=== PATIENT | female | born 1925 | race Caucasian/White ===

== ENCOUNTER 2016-07-01 16:43 | Inpatient (IN) | payer MEDICARE, BC ==
[2016-07-01] MEDS ORDERED: SODIUM CHLORIDE 0.9% 1,000 ML IV STA (17:04)
--- NOTE | 2016-07-01 17:09 | ED ---
General Adult HPI - General Chief complaint: Weakness Stated complaint: Weakness Time Seen by Provider: 07/01/16 16:52 Source: patient, family, RN notes reviewed Mode of arrival: EMS Limitations: no limitations - History of Present Illness Initial comments: Patient is a pleasant 89-year-old female presenting to the emergency department with weakness. Patient was seen by her visiting physician Tuesday with concerns for stroke. Patient has had episodes of confusion and difficulty finding words. Patient is also having episodes of slurred speech. Symptoms are intermittent. Patient feels generally weak. No isolated area of weakness. Decreased oral intake - Related Data Home Medications Medication Instructions Recorded Confirmed ALPRAZolam [Xanax] 0.5 mg PO QID PRN 07/01/16 07/01/16 Allopurinol [Zyloprim] 100 mg PO DAILY 07/01/16 07/01/16 Aspirin EC [Ecotrin Low Dose] 81 mg PO DAILY 07/01/16 07/01/16 Ciprofloxacin HCl [Cipro] 250 mg PO BID 07/01/16 07/01/16 Hydrocodone/Acetaminophen [[place] 1 tab PO Q6H PRN 07/01/16 07/01/16 10-325] Isosorbide Mononitrate ER [Imdur] 30 mg PO DAILY 07/01/16 07/01/16 Levothyroxine Sodium [Synthroid] 25 mcg PO AC-BRKFST 07/01/16 07/01/16 Losartan [Cozaar] 25 mg PO DAILY 07/01/16 07/01/16 Nystatin 100,000Unit/gm Cream 1 applic TOPICAL BID PRN 07/01/16 07/01/16 [Mycostatin Cream] Polyethylene Glycol 3350 [Miralax] 17 gm PO DAILY PRN 07/01/16 07/01/16 Spironolactone [Aldactone] 25 mg PO DAILY 07/01/16 07/01/16 Allergies Allergy/AdvReac Type Severity Reaction Status Date / Time No Known Allergies Allergy Verified 07/01/16 18:07 Review of Systems ROS Statement: Those systems with pertinent positive or pertinent negative responses have been documented in the HPI. ROS Other: All systems not noted in ROS Statement are negative. Constitutional: Denies: fever Eyes: Denies: eye pain ENT: Denies: ear pain Respiratory: Denies: cough Cardiovascular: Denies: chest pain Endocrine: Denies: fatigue Gastrointestinal: Denies: abdominal pain Genitourinary: Denies: urgency Skin: Denies: rash Neurological: Reports: weakness, confusion Past Medical History Past Medical History: Heart Failure, Hypertension, Thyroid Disorder History of Any Multi-Drug Resistant Organisms: None Reported Past Surgical History: Appendectomy, Cholecystectomy, Hysterectomy, Orthopedic Surgery Additional Past Surgical History / Comment(s): Kidney stones, Cataracks removed , tear duct sx, Past Psychological History: Depression Smoking Status: Never smoker Past Alcohol Use History: None Reported Past Drug Use History: None Reported General Exam Limitations: no limitations General appearance: alert, in no apparent distress Head exam: Present: atraumatic Eye exam: Present: normal appearance, PERRL, EOMI. Absent: nystagmus ENT exam: Present: normal oropharynx Neck exam: Present: normal inspection Respiratory exam: Present: normal lung sounds bilaterally Cardiovascular Exam: Present: regular rate, normal rhythm GI/Abdominal exam: Present: soft. Absent: tenderness Extremities exam: Present: normal inspection Back exam: Present: normal inspection Neurological exam: Present: alert, CN II-XII intact. Absent: motor sensory deficit Expanded Speech: Present: fluid speech Cranial nerves: EOM's Intact: Normal Motor strength exam: RUE: 5, LUE: 5, RLE: 5, LLE: 5 Psychiatric exam: Present: normal affect, normal mood Skin exam: Present: normal color Course Vital Signs 07/01/16 07/01/16 16:48 18:24 Temperature 97.5 F L Pulse Rate 60 50 L Respiratory 18 18 Rate Blood Pressure 179/74 179/74 O2 Sat by Pulse 93 L 96 Oximetry EKG Findings - EKG Comments: EKG Findings:: EKG shows sinus rhythm at 68. For screening AV block with a MO of 358. QRS 78. QT 442. QTC 469. Left axis. Normal QRS. Normal ST-T. Medical Decision Making - Medical Decision Making Patient reevaluated and unchanged. Patient and family updated on results and plan. Case was discussed in detail with Dr. medrano, who will admit for Dr. Sandoval. - Lab Data Result diagrams: 07/01/16 17:10 07/01/16 17:10 Lab Results 07/01/16 07/01/16 07/01/16 Range/Units 17:10 17:10 17:10 WBC 7.5 (3.8-10.6) k/uL RBC 4.66 (3.80-5.40) m/uL Hgb 15.0 (11.4-16.0) gm/dL Hct 46.1 H (34.0-46.0) % MCV 99.0 (80.0-100.0) fL MCH 32.2 (25.0-35.0) pg MCHC 32.5 (31.0-37.0) g/dL RDW 14.8 (11.5-15.5) % Plt Count 215 (150-450) k/uL Neutrophils % 65 % Lymphocytes % 27 % Monocytes % 5 % Eosinophils % 1 % Basophils % 1 % Neutrophils # 4.8 (1.3-7.7) k/uL Lymphocytes # 2.0 (1.0-4.8) k/uL Monocytes # 0.4 (0-1.0) k/uL Eosinophils # 0.1 (0-0.7) k/uL Basophils # 0.1 (0-0.2) k/uL Macrocytosis Slight PT (9.0-12.0) sec INR (<1.1) APTT (22.0-30.0) sec Sodium 142 (137-145) mmol/L Potassium 4.8 (3.5-5.1) mmol/L Chloride 111 H (98-107) mmol/L Carbon Dioxide 22 (22-30) mmol/L Anion Gap 9 mmol/L BUN 19 H (7-17) mg/dL Creatinine 1.11 H (0.52-1.04) mg/dL Est GFR (MDRD) Af Amer 56 (>60 ml/min/1.73 sqM) Est GFR (MDRD) Non-Af 46 (>60 ml/min/1.73 sqM) Glucose 92 (74-99) mg/dL Calcium 9.9 (8.4-10.2) mg/dL Phosphorus 3.4 (2.5-4.5) mg/dL Magnesium 1.9 (1.6-2.3) mg/dL Total Bilirubin 1.7 H (0.2-1.3) mg/dL AST 58 H (14-36) U/L ALT 17 (9-52) U/L Alkaline Phosphatase 78 (38-126) U/L Total Creatine Kinase 62 (30-135) U/L CK-MB (CK-2) 1.5 (0.0-2.4) ng/mL CK-MB (CK-2) Rel Index 2.4 Troponin I 0.082 H* (0.000-0.034) ng/mL Total Protein 6.8 (6.3-8.2) g/dL Albumin 3.7 (3.5-5.0) g/dL TSH 1.900 (0.465-4.680) mIU/L Free T4 1.79 (0.78-2.19) ng/dL Free T3 pg/mL 3.6 (2.8-5.3) pg/ml 07/01/16 Range/Units 17:10 WBC (3.8-10.6) k/uL RBC (3.80-5.40) m/uL Hgb (11.4-16.0) gm/dL Hct (34.0-46.0) % MCV (80.0-100.0) fL MCH (25.0-35.0) pg MCHC (31.0-37.0) g/dL RDW (11.5-15.5) % Plt Count (150-450) k/uL Neutrophils % % Lymphocytes % % Monocytes % % Eosinophils % % Basophils % % Neutrophils # (1.3-7.7) k/uL Lymphocytes # (1.0-4.8) k/uL Monocytes # (0-1.0) k/uL Eosinophils # (0-0.7) k/uL Basophils # (0-0.2) k/uL Macrocytosis PT 10.5 (9.0-12.0) sec INR 1.0 (<1.1) APTT 20.8 L (22.0-30.0) sec Sodium (137-145) mmol/L Potassium (3.5-5.1) mmol/L Chloride (98-107) mmol/L Carbon Dioxide (22-30) mmol/L Anion Gap mmol/L BUN (7-17) mg/dL Creatinine (0.52-1.04) mg/dL Est GFR (MDRD) Af Amer (>60 ml/min/1.73 sqM) Est GFR (MDRD) Non-Af (>60 ml/min/1.73 sqM) Glucose (74-99) mg/dL Calcium (8.4-10.2) mg/dL Phosphorus (2.5-4.5) mg/dL Magnesium (1.6-2.3) mg/dL Total Bilirubin (0.2-1.3) mg/dL AST (14-36) U/L ALT (9-52) U/L Alkaline Phosphatase (38-126) U/L Total Creatine Kinase (30-135) U/L CK-MB (CK-2) (0.0-2.4) ng/mL CK-MB (CK-2) Rel Index Troponin I (0.000-0.034) ng/mL Total Protein (6.3-8.2) g/dL Albumin (3.5-5.0) g/dL TSH (0.465-4.680) mIU/L Free T4 (0.78-2.19) ng/dL Free T3 pg/mL (2.8-5.3) pg/ml - Radiology Data Radiology results: report reviewed (Computed tomography scan the brain shows some atrophy and chronic small vessel disease. No acute process.), image reviewed (This x-ray shows cardiomegaly with some venous congestion.) Disposition Clinical Impression: TIA (transient ischemic attack) Disposition: ADMITTED IP TO THIS [facility] Time of Disposition: 18:53
[2016-07-01 17:30] LABS: Basophils # (A) 0.1 k/uL (0-0.2); Basophils % (A) 1 %; CH 32.8; CHCM 33.3; Eosinophils # (A) 0.1 k/uL (0-0.7); Eosinophils % (A) 1 %; HCT 46.1 % (34.0-46.0); HDW 2.88; Luc # (Auto) 0.12; Luc % (Auto) 2; Lymphocytes % (A) 27 %; MCH 32.2 pg (25.0-35.0); MCHC 32.5 g/dL (31.0-37.0); Macrocytosis Slight; Mean Platelet Volume 7.6; Monocytes # (A) 0.4 k/uL (0-1.0); Monocytes % (A) 5 %; Neutrophils # (A) 4.8 k/uL (1.3-7.7); Neutrophils % (A) 65 %; RBC 4.66 m/uL (3.80-5.40); RDW 14.8 % (11.5-15.5); WBC 7.5 k/uL (3.8-10.6); WBC (Perox) 7.07
[2016-07-01 17:43] LABS: Calcium 9.9 mg/dL (8.4-10.2); Magnesium 1.9 mg/dL (1.6-2.3); Phosphorous 3.4 mg/dL (2.5-4.5); Potassium 4.8 mmol/L (3.5-5.1); Total Bilirubin 1.7 mg/dL (0.2-1.3); Total Protein 6.8 g/dL (6.3-8.2)
[2016-07-01] MEDS ORDERED: HYDROcodone/APAP 10-325MG 1 EACH TAB PO STA (17:51)
[2016-07-01 18:01] LABS: Partial Thromboplastin Time 20.8 sec (22.0-30.0); Prothrombin Time 10.5 sec (9.0-12.0)
[2016-07-01 18:04] LABS: Creatine Kinase MB 1.5 ng/mL (0.0-2.4)
[2016-07-01 18:06] LABS: Troponin I 0.082 ng/mL (0.000-0.034)
--- NOTE | 2016-07-01 18:27 | CT ---
EXAMINATION TYPE: CT brain wo con DATE OF EXAM: 07/01/2016 6:16 PM COMPARISON: 07/22/2010 HISTORY: weakness CT DLP: [address] of the brain was performed. The ventricles, basal cisterns and sulci overlying the cerebral convexities demonstrate moderate enla rgement. There is no evidence for intracranial hemorrhage or sulcal effacement. There is decreased attenuation about the periventricular white matter and deep white matter of both c erebral hemispheres, compatible with chronic small vessel ischemia. Differential diagnosis does inclu de demyelination. No mass effects are seen.No midline shift. Osseous calvarium is intact. If symptoms persist consider MRI. IMPRESSION: 1. Age related atrophic and chronic small vessel ischemic change without acute intracranial process s een at this time.
--- NOTE | 2016-07-01 18:29 | XR ---
EXAMINATION TYPE: XR chest 2V DATE OF EXAM: 07/01/2016 6:14 PM COMPARISON: 07/22/2010 HISTORY: Shortness of breath TECHNIQUE: Frontal and lateral views of the chest are obtained. FINDINGS: Scattered senescent parenchymal changes noted. Hyperinflation compatible with COPD. No evidence for infiltrate. No evidence for atelectasis. Heart size is enlarged. Pulmonary venous congestion without overt failure at this time. Mediastinal structures are stable and grossly unremarkable. A hiatal hernia noted. No evidence for hilar prominence. Degenerative changes dorsal spine. IMPRESSION: 1. Heart size is enlarged. Pulmonary venous congestion without overt failure at this time.
[2016-07-01] MEDS ORDERED: ASPIRIN 325 MG TAB PO STA (18:53)
[2016-07-01 21:25] VITALS: RESP 16
[2016-07-01] MEDS ORDERED: ALPRAZolam 0.5 MG TAB PO PRN (23:03)
[2016-07-01 23:36] LABS: Appearance,Urine Clear (Clear); Bilirubin,Urine Negative (Negative); Glucose,Urine (UA) Negative (Negative); Ketones,Urine 1+ (Negative); Leukocyte Esterase,Urine Small (Negative); Mucus,Urine Rare /hpf; Nitrite,Urine Negative (Negative); Particle Count 728; Protein,Urine Trace (Negative); RBC,Urine 2 /hpf (0-5); Specific Gravity,Urine 1.012 (1.001-1.035); Squamous Epithelial Cell,Urine 4 /hpf (0-4); Transitional Epi Cells,Urine <1 /hpf (0-1); UA Billing (MACRO vs. MICRO) MICRO; Urobilinogen,Urine <2.0 mg/dL (<2.0); WBC,Urine 8 /hpf (0-5)
[2016-07-02] MEDS: SODIUM CHLORIDE 0.9% 1,000 ML IV SCH ×2 (01:37→07:02)
--- NOTE | 2016-07-02 07:58 | US ---
EXAMINATION TYPE: US carotid duplex BILAT DATE OF EXAM: 07/01/2016 8:10 PM COMPARISON: NONE CLINICAL HISTORY: Stenosis. EXAM MEASUREMENTS: RIGHT: Peak Systolic Velocity (PSV) cm/sec ----- Right CCA: 60.3 ----- Right ICA: 73.5 ----- Right ECA: 51.6 ICA/CCA ratio: 1.2 RIGHT: End Diastole cm/sec ----- Right CCA: 5.4 ----- Right ICA: 8.7 ----- Right ECA: 6.5 LEFT: Peak Systolic Velocity (PSV) cm/sec ----- Left CCA: 53.3 ----- Left ICA: 87.1 ----- Left ECA: 58.0 ICA/CCA ratio: 1.6 LEFT: End Diastole cm/sec ----- Left CCA: 6.7 ----- Left ICA: 7.9 ----- Left ECA: 9.5 VERTEBRALS (direction of flow): Right Vertebral: Antegrade Left Vertebral: Antegrade Arrythmia noted bilaterally throughout exam. Mild amount of plaque visualized bilateral bulbs, no el evated velocities IMPRESSION: 1. No evidence of hemodynamically significant stenosis. 2. Note of cardiac arrhythmia. Follow-up with a job order clerk should be considered.
[2016-07-02] MEDS ORDERED: ASPIRIN 325 MG TAB PO SCH (09:00)
[2016-07-02] MEDS ORDERED: ISOSORBIDE MONONITRATE ER 30 MG TAB.ER.24H PO SCH (09:30)
[2016-07-02] MEDS ORDERED: SPIRONOLACTONE 25 MG TAB PO SCH (09:30)
[2016-07-02] MEDS ORDERED: LOSARTAN 25 MG TAB PO SCH (09:30)
--- NOTE | 2016-07-02 09:48 | P.CRDCN ---
History of Present Illness Consult date: 07/02/16 Reason for Consult (text): elevated troponin Chief complaint: Expressive aphasia History of present illness: This is a pleasant 89-year-old female patient who is alert and oriented severe debility for several years who has a history of heart failure with unknown ejection fraction at this time, hypertension, thyroid disorder. Presented via EMS after being evaluated by her visiting physician on Tuesday and noted to have some slurred speech and expressive aphasia. At that time was recommended the patient go to the emergency department however the patient did not want to go if she would have to leave her alone at home. The patient had home care set up at home for her and chose to call EMS and presented to the emergency department yesterday. [place] patient has been noted to have sinus rhythm with a first-degree AV block, second degree type I AV block and intermittent third-degree AV block with heart rates as low as 28. No atrial fibrillation has been seen. Patient underwent computed tomography scan that showed age-related atrophic and chronic small vessel ischemic changes without evidence of acute intracranial process. Chest x-ray showed pulmonary venous congestion without overt failure. Rate studies were normal. Laboratory values showed BUN 19, creatinine 1.11, BNP 1890 and troponin of 0.082 with only one level drawn. Patient's heart rate continues to fluctuate running mostly in the 50s this morning. She is on no rate lowering medications at home. On examination, patient resting comfortably in bed, is awake alert and oriented 3. She does verbalize episodes of lightheadedness and dizziness at home, denies syncope. Had no complaints of shortness of breath or chest discomfort. Past Medical History Past Medical History: Atrial Fibrillation, Heart Failure, Hypertension, Osteoarthritis (OA), Renal Disease, Rheumatoid Arthritis (RA), Thyroid Disorder History of Any Multi-Drug Resistant Organisms: None Reported Past Surgical History: Appendectomy, Cholecystectomy, Hysterectomy, Orthopedic Surgery Additional Past Surgical History / Comment(s): Kidney stones, Cataracts removed , tear duct sx, knee replacement Past Anesthesia/Blood Transfusion Reactions: Unable to Obtain Past Psychological History: Depression Smoking Status: Never smoker Past Alcohol Use History: None Reported Past Drug Use History: None Reported - Past Family History Mother Family Medical History: Unable to Obtain Medications and Allergies Home Medications Medication Instructions Recorded Confirmed Type ALPRAZolam [Xanax] 0.5 mg PO QID PRN 07/01/16 07/01/16 History Allopurinol [Zyloprim] 100 mg PO DAILY 07/01/16 07/01/16 History Aspirin EC [Ecotrin Low Dose] 81 mg PO DAILY 07/01/16 07/01/16 History Ciprofloxacin HCl [Cipro] 250 mg PO BID 07/01/16 07/01/16 History Hydrocodone/Acetaminophen [[place] 1 tab PO Q6H PRN 07/01/16 07/01/16 History 10-325] Isosorbide Mononitrate ER [Imdur] 30 mg PO DAILY 07/01/16 07/01/16 History Levothyroxine Sodium [Synthroid] 25 mcg PO AC-BRKFST 07/01/16 07/01/16 History Losartan [Cozaar] 25 mg PO DAILY 07/01/16 07/01/16 History Nystatin 100,000Unit/gm Cream 1 applic TOPICAL BID PRN 07/01/16 07/01/16 History [Mycostatin Cream] Polyethylene Glycol 3350 [Miralax] 17 gm PO DAILY PRN 07/01/16 07/01/16 History Spironolactone [Aldactone] 25 mg PO DAILY 07/01/16 07/01/16 History Allergies Allergy/AdvReac Type Severity Reaction Status Date / Time No Known Allergies Allergy Verified 07/01/16 18:07 Physical Exam Vitals: Vital Signs Temp Pulse Resp BP Pulse Ox 07/02/16 03:43 96.6 F L 67 16 181/84 94 L 07/02/16 00:00 96.9 F L 59 L 16 164/85 96 07/01/16 21:25 51 L 16 165/77 96 07/01/16 19:28 53 L 16 209/84 96 Intake and Output 07/01/16 07/02/16 07/02/16 22:59 06:59 14:59 Intake Total 800 Output Total 1400 Balance -600 Intake: IV 800 Sodium Chloride 0.9% 1, 800 000 ml @ 100 mls/hr IV . Q10H [facility] Rx#:[id number] Output: Urine 1400 Other: Voiding Method Bedpan # Voids 8 Weight 72 kg PHYSICAL EXAMINATION: HEENT: Head is atraumatic, normocephalic. Pupils equal, round. Neck is supple. There is no elevated jugular venous pressure. HEART EXAMINATION: Heart sounds regular, S1 and S2 normal. No murmur or gallop heard. CHEST EXAMINATION: Lungs are clear to auscultation and precussion. No chest wall tenderness is noted on palpation or with deep breathing. ABDOMEN: Soft, nontender. Bowel sounds are heard. No organomegaly noted. EXTREMITIES: 2+ peripheral pulses with evidence of trace peripheral edema and no calf tenderness noted. NEUROLOGIC patient is awake, alert and oriented x3. . Results 07/01/16 17:10 07/01/16 17:10 Current Medications Generic Name Dose Route Start Last Admin Trade Name Freq PRN Reason Stop Dose Admin Hydrocodone Bitart/Acetaminophen 1 each 07/01/16 23:03 [place] 10 PO Q6H PRN Pain Alprazolam 0.5 mg 07/01/16 23:03 Xanax PO QID PRN Anxiety Aspirin 325 mg 07/02/16 09:00 Aspirin PO DAILY [facility] Sodium Chloride 1,000 mls @ 100 mls/hr 07/01/16 19:00 07/02/16 07:02 Saline 0.9% IV 100 mls/hr .Q10H [facility] Administration Isosorbide Mononitrate 30 mg 07/02/16 09:30 Imdur PO DAILY [facility] Losartan Potassium 25 mg 07/02/16 09:30 Cozaar PO DAILY [facility] Spironolactone 25 mg 07/02/16 09:30 Aldactone PO DAILY [facility] Intake and Output 07/01/16 07/02/16 07/02/16 22:59 06:59 14:59 Intake Total 800 Output Total 1400 Balance -600 Intake: IV 800 Sodium Chloride 0.9% 1, 800 000 ml @ 100 mls/hr IV . Q10H [facility] Rx#:[id number] Output: Urine 1400 Other: Voiding Method Bedpan # Voids 8 Weight 72 kg Assessment and Plan Plan: Assessment and plan #1 high-grade AV block #2 heart failure, ejection fraction unknown at this time, BNP 1890 #3 hypertension #4 history of thyroid disease, thyroid studies normal at this time Cardiac standpoint, need for permanent pacemaker was discussed with the patient who is alert and oriented. She has declined at this time. She has discussed this with her family. The decision has been made to discharge the patient home with hospice care. [employer] note has been reviewed, I agree with a documented findings and plan of care. Patient was seen and examined.
[2016-07-02 10:00] LABS: Cholesterol 145 mg/dL (<200); HDL Cholesterol 55 mg/dL (40-60); Triglycerides 90 mg/dL (<150)
[2016-07-02] MEDS: HYDROcodone/APAP 10-325MG 1 EACH TAB PO PRN ×2 (10:48→16:42)
[2016-07-02 11:41] VITALS: BMI 30.9
[2016-07-02 15:14] VITALS: PULSE 71
[2016-07-02 15:18] VITALS: BP 162/70; TEMP 97.5
--- NOTE | 2016-07-02 16:04 | P.HPIM ---
History of Present Illness H&P Date: 07/02/16 (DC summary As well) 89-year-old female comes in the hospital with the episode of dysarthria area family was at bedside who stated that her about a stroke. Patient was evaluated in the emergency room no significant focal defects were noted. However patient was noted to initially have a first-degree heart block thereafter a second-degree heart block type II thereafter went into a high degree AV block lower his heart rate around 36. At the time of my evaluation patient denies having any symptoms denies headaches blurry vision nausea vomiting, chest pain, difficulty breathing, abdominal pain, urinary urgency or frequency, lower extremity tenderness Patient states that she has not really been active over the last few years only time she gets out of her house is on an ambulance Patient was evaluated by the research animal attendant for third degree heart block patient refused to have a pacemaker placed Patient's heart rate was greater than 50 during my evaluation Review of Systems All systems: negative Past Medical History Past Medical History: Atrial Fibrillation, Heart Failure, Hypertension, Osteoarthritis (OA), Renal Disease, Rheumatoid Arthritis (RA), Thyroid Disorder History of Any Multi-Drug Resistant Organisms: None Reported Past Surgical History: Appendectomy, Cholecystectomy, Hysterectomy, Orthopedic Surgery Additional Past Surgical History / Comment(s): Kidney stones, Cataracts removed , tear duct sx, knee replacement Past Anesthesia/Blood Transfusion Reactions: Unable to Obtain Past Psychological History: Depression Smoking Status: Never smoker Past Alcohol Use History: None Reported Past Drug Use History: None Reported - Past Family History Mother Family Medical History: Unable to Obtain Medications and Allergies Home Medications Medication Instructions Recorded Confirmed Type Aspirin EC [Ecotrin Low Dose] 81 mg PO DAILY 07/01/16 07/01/16 History Isosorbide Mononitrate ER [Imdur] 30 mg PO DAILY 07/01/16 07/01/16 History Levothyroxine Sodium [Synthroid] 25 mcg PO AC-BRKFST 07/01/16 07/01/16 History Losartan [Cozaar] 25 mg PO DAILY 07/01/16 07/01/16 History Nystatin 100,000Unit/gm Cream 1 applic TOPICAL BID PRN 07/01/16 07/01/16 History [Mycostatin Cream] Polyethylene Glycol 3350 [Miralax] 17 gm PO DAILY PRN 07/01/16 07/01/16 History Spironolactone [Aldactone] 25 mg PO DAILY 07/01/16 07/01/16 History Allergies Allergy/AdvReac Type Severity Reaction Status Date / Time No Known Allergies Allergy Verified 07/01/16 18:07 Physical Exam Vitals: Vital Signs Temp Pulse Resp BP Pulse Ox 07/02/16 12:00 97.5 F L 65 16 162/70 96 07/02/16 08:00 97.2 F L 71 14 168/71 95 07/02/16 03:43 96.6 F L 67 16 181/84 94 L 07/02/16 00:00 96.9 F L 59 L 16 164/85 96 07/01/16 21:25 51 L 16 165/77 96 07/01/16 19:28 53 L 16 209/84 96 Intake and Output 07/02/16 07/02/16 07/02/16 06:59 14:59 22:59 Intake Total 800 Output Total 1400 Balance -600 Intake: IV 800 Sodium Chloride 0.9% 1, 800 000 ml @ 100 mls/hr IV . Q10H [facility] Rx#:[id number] Output: Urine 1400 Other: Voiding Method Bedpan Bedpan # Voids 8 Weight 72 kg 72 kg Patient Weight 07/03/16 06:59 Weight 72 kg Physical exam Gen. appearance oriented 3 in no distress Neck is supple no JVD Lungs good air entry clear to auscultation no rhonchi or wheezing Heart S1-S2 heard regular rate and rhythm no murmurs appreciated Abdomen is soft nontender no organomegaly bowel sounds are intact Neurologically cranial nerves II-12 grossly intact no focal motor or sensory deficits noted Right lower extremity some tenderness to palpation around the calf Skin no abnormalities appreciated Results CBC & Chem 7: 07/01/16 17:10 07/01/16 17:10 Labs: Abnormal Lab Results - Last 24 Hours (Table) 07/01/16 07/02/16 Range/Units 23:00 10:52 Troponin I 0.261 H* (0.000-0.034) ng/mL Urine Protein Trace H (Negative) Urine Ketones 1+ H (Negative) Ur Leukocyte Esterase Small H (Negative) Urine WBC 8 H (0-5) /hpf Urine Mucus Rare H (None) /hpf Thrombosis Risk Factor Assmnt - Choose All That Apply Any of the Below Risk Factors Present?: Yes Each Factor Represents 1 point: Medical pt on bed rest Each Risk Factor Represents 3 Points: Age 75 years or older Thrombosis Risk Factor Assessment Total Risk Factor Score: 4 Thrombosis Risk Factor Assessment Level: Moderate Risk Assessment and Plan Plan: Complete heart block number #2 hypothymism #3 hypertension #4 deconditioning #5 history of atrial fibrillation #6 dyslipidemia Plan Patient is not on calcium channel blockers or beta blockers. Does appear to be intermittent complete heart block patient does have an indication for pacemaker placement. Upon further discussion with the family and the patient and after answering all her questions and the family's questions have decided not to undergo the procedure as it does not improve her lifestyle. I discussed hospice patient has elected to go home with hospice Goals of care will be changed to comfort measures only and to continue her current medications I did discuss the above-described goals of care as well family and the patient were in agreement
--- NOTE | 2016-07-02 16:47 | P.CNNES ---
History of Present Illness Consult date: 07/02/16 Reason for Consult: Patient being evaluated for episode of possible TIA. History of Present Illness: This patient is a 89-year-old right-handed white female who was in her usual state of health until yesterday. Patient follows with the visiting physician who comes to see her on a regular basis. Last week she was complaining of difficulty with symptoms of expressive aphasia and slurring of her speech. 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 She lives home with her who is aged 92. She did not want to leave him alone. Apparently her symptoms continued to recur quite frequently and she was able to arrange for a visit to the emergency room yesterday. She had to set up home care for her and then was able to call EMS. She was seen in the emergency room by Dr. Murali Mantilla. EKG revealed her to have evidence of cardiac arrhythmia. She showed signs of a first-degree AV block. At that time there is no evidence of atrial fibrillation. Patient was sent for a computed tomography scan of the brain which revealed age related atrophy and chronic white matter ischemic changes. No evidence of acute stroke. The patient was subsequently admitted to the hospital. She states that the effect of her speech comes and goes. Apparently she does have a history of atrial fibrillation in the past. She has been following closely only with the visiting physicians at home. She was seen by cardiology today who diagnosed her with high-grade AV block. She was recommended to undergo permanent pacemaker placement. Patient had a discussion with her and son and they have now made a decision for her to decline the pacemaker placement at this time. The patient herself would rather go home with hospice care. Patient denies any previous history of TIA or stroke. She did undergo a carotid ultrasound yesterday which revealed no significant carotid artery stenosis. Her cardiac arrhythmia was detected. The patient is now admitted and neurology has been consulted for further evaluation and recommendations. Review of Systems Constitutional: Denies chills, Denies fever Eyes: denies blurred vision, denies pain Ears, nose, mouth and throat: Denies headache, Denies sore throat Cardiovascular: Denies chest pain, Denies shortness of breath Respiratory: Denies cough Gastrointestinal: Denies abdominal pain, Denies diarrhea, Denies nausea, Denies vomiting Genitourinary: Denies dysuria, Denies hematuria Musculoskeletal: Denies myalgias Integumentary: Denies pruritus, Denies rash Neurological: Reports change in speech, Reports gait dysfunction, Denies numbness, Denies weakness Psychiatric: Denies anxiety, Denies depression Endocrine: Denies fatigue, Denies weight change Past Medical History Past Medical History: Atrial Fibrillation, Heart Failure, Hypertension, Osteoarthritis (OA), Renal Disease, Rheumatoid Arthritis (RA), Thyroid Disorder History of Any Multi-Drug Resistant Organisms: None Reported Past Surgical History: Appendectomy, Cholecystectomy, Hysterectomy, Orthopedic Surgery Additional Past Surgical History / Comment(s): Kidney stones, Cataracts removed , tear duct sx, knee replacement Past Anesthesia/Blood Transfusion Reactions: Unable to Obtain Past Psychological History: Depression Smoking Status: Never smoker Past Alcohol Use History: None Reported Past Drug Use History: None Reported - Past Family History Mother Family Medical History: Unable to Obtain Medications and Allergies Home Medications Medication Instructions Recorded Confirmed Type Aspirin EC [Ecotrin Low Dose] 81 mg PO DAILY 07/01/16 07/01/16 History Isosorbide Mononitrate ER [Imdur] 30 mg PO DAILY 07/01/16 07/01/16 History Levothyroxine Sodium [Synthroid] 25 mcg PO AC-BRKFST 07/01/16 07/01/16 History Losartan [Cozaar] 25 mg PO DAILY 07/01/16 07/01/16 History Nystatin 100,000Unit/gm Cream 1 applic TOPICAL BID PRN 07/01/16 07/01/16 History [Mycostatin Cream] Polyethylene Glycol 3350 [Miralax] 17 gm PO DAILY PRN 07/01/16 07/01/16 History Spironolactone [Aldactone] 25 mg PO DAILY 07/01/16 07/01/16 History Allergies Allergy/AdvReac Type Severity Reaction Status Date / Time No Known Allergies Allergy Verified 07/01/16 18:07 Physical Examination - Vital Signs Vital Signs: Vital Signs Temp Pulse Resp BP Pulse Ox 07/02/16 12:00 97.5 F L 65 16 162/70 96 07/02/16 08:00 97.2 F L 71 14 168/71 95 07/02/16 03:43 96.6 F L 67 16 181/84 94 L 07/02/16 00:00 96.9 F L 59 L 16 164/85 96 07/01/16 21:25 51 L 16 165/77 96 07/01/16 19:28 53 L 16 209/84 96 Intake and Output 07/02/16 07/02/16 07/02/16 06:59 14:59 22:59 Intake Total 800 Output Total 1400 Balance -600 Intake: IV 800 Sodium Chloride 0.9% 1, 800 000 ml @ 100 mls/hr IV . Q10H [facility] Rx#:[id number] Output: Urine 1400 Other: Voiding Method Bedpan Bedpan # Voids 8 Weight 72 kg 72 kg Patient Weight 07/03/16 06:59 Weight 72 kg - Constitutional General appearance: average body habitus, cooperative - EENT EENT: PERRL, mucous membranes moist - Respiratory Respiratory: lungs clear, normal breath sounds - Cardiovascular Cardiovascular: regular rate, normal S1, normal S2 Extremities: no peripheral edema bilaterally - Gastrointestinal Gastrointestinal: normoactive bowel sounds - Integumentary Integumentary: normal - Neurologic Cranial nerve examination: PERRL, EOMI, VFF, V1/V2/V3 grossly intact, face symmetric, intact gag reflex, intact corneal reflex, normal palatal elevation Speech examination: intact Sensorimotor examination: intact Detailed motor examination: grossly full strength in all extremities Detailed sensory examination: intact Reflexes: 1+: ankle, bicep, knee, tricep - Musculoskeletal Musculoskeletal: no pain - Psychiatric Psychiatric: mood/affect appropriate, cooperative Results - Laboratory Findings CBC and BMP: 07/01/16 17:10 07/01/16 17:10 Abnormal Lab Findings: Abnormal Labs 07/01/16 07/02/16 23:00 10:52 Troponin I 0.261 H* Urine Protein Trace H Urine Ketones 1+ H Ur Leukocyte Esterase Small H Urine WBC 8 H Urine Mucus Rare H Assessment and Plan (1) Cardiac arrhythmia Status: Acute Code(s): I49.9 - CARDIAC ARRHYTHMIA, UNSPECIFIED (2) First degree AV block Status: Acute Code(s): I44.0 - ATRIOVENTRICULAR BLOCK, FIRST DEGREE (3) TIA (transient ischemic attack) Status: Acute Code(s): G45.9 - TRANSIENT CEREBRAL ISCHEMIC ATTACK, UNSPECIFIED Plan: This patient is a 89-year-old female who was admitted to hospital with episodes of recurrent expressive aphasia and word finding difficulties. Symptoms began about a week ago however she sought medical attention only yesterday. She was brought into the emergency room and underwent a computed tomography scan of the brain which failed to reveal any evidence of acute stroke. Her EKG revealed her to have high degree AV block. She was recommended by cardiology to have a pacemaker placement. Patient has declined and is rather opted for discharge home with hospice care. Her neurological examination at this time is nonfocal. She does have symptoms suggesting probable recurrent TIA. Carotid Doppler ultrasound failed to reveal any significant carotid artery stenosis. She may benefit from ongoing therapy with low-dose aspirin. Her overall prognosis at this time remains guarded. 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 Patient is will aware of her current neurological status and has elected to be discharged home with hospice care later today. As noted her overall prognosis at this time remains guarded. Time with Patient: Greater than 30
--- NOTE | 2016-07-07 16:11 | ECHOF ---
Referral Reason:Thrombus MEASUREMENTS -------- HEIGHT: 152.4 cm WEIGHT: 71.7 kg BP: 181/84 IVSd: 1.3 cm (0.6 - 1.1) LVIDd: 3.3 cm (3.9 - 5.3) LVPWd: 1.3 cm (0.6 - 1.1) IVSs: 1.7 cm LVIDs: 2.3 cm LVPWs: 1.6 cm LAESV Index (A-L): 24.55 ml/m Ao Diam: 3.4 cm (2.0 - 3.7) AV Cusp: 1.8 cm (1.5 - 2.6) AR PHT: 814 ms RAP: 5.00 mmHg RVSP: 35.43 mmHg FINDINGS -------- Atrial fibrillation. This was a technically difficult study with suboptimal views. There is mild concentric left ventricular hypertrophy. Overall left ventricular systolic function is normal with, an EF between 55 - 60 %. The right ventricle is normal in size and function. Normal LA size by volume 22+/-6 ml/m2. The right atrium is normal in size. 1.5mg of Definity was utilized for enhancement of images Aortic valve is trileaflet and is mildly thickened. There is mild aortic regurgitation. There is no evidence of aortic stenosis. The mitral valve leaflets are mildly thickened. There is trace mitral regurgitation. Mild tricuspid regurgitation present. There is mild pulmonary hypertension. The right ventricular systolic pressure, as measured by Doppler, is 35.43mmHg. The pulmonic valve is normal. The aortic root size is normal. IVC Not well visulized. There is no pericardial effusion. CONCLUSIONS -------- 1. Atrial fibrillation. 2. Mild tricuspid regurgitation present. 3. There is mild pulmonary hypertension. 4. The right ventricular systolic pressure, as measured by Doppler, is 35.43mmHg. 5. The aortic root size is normal. 6. There is no pericardial effusion. 7. This was a technically difficult study with suboptimal views. 8. There is mild concentric left ventricular hypertrophy. 9. Overall left ventricular systolic function is normal with, an EF between 55 - 60 %. 10. 1.5mg of Definity was utilized for enhancement of images 11. Aortic valve is trileaflet and is mildly thickened. 12. There is mild aortic regurgitation. 13. The mitral valve leaflets are mildly thickened. 14. There is trace mitral regurgitation. MANAGER SOUND: Flaquita Hughes RDCS
== END 2016-07-02 16:58 | disposition hospice, home (50) | DRG 309 ==
LOC: EC 16:43 → SUPCPDRO 16:43 → 6SEL 18:53
PROVIDERS: ADMIT Internal Medicine; ATTEND Internal Medicine
DX: I44.2 Atrioventricular block, complete (principal); G45.9 Transient cerebral ischemic attack, unspecified; I11.0 Hypertensive heart disease with heart failure; M06.9 Rheumatoid arthritis, unspecified; I50.9 Heart failure, unspecified; I48.91 Unspecified atrial fibrillation; Z51.5 Encounter for palliative care; E03.9 Hypothyroidism, unspecified; E78.5 Hyperlipidemia, unspecified; M19.91 Primary osteoarthritis, unspecified site; F32.9 Major depressive disorder, single episode, unspecified; Z90.49 Acquired absence of other specified parts of digestive tract; Z90.710 Acquired absence of both cervix and uterus; Z98.42 Cataract extraction status, left eye; Z98.41 Cataract extraction status, right eye; Z87.442 Personal history of urinary calculi; Z96.659 Presence of unspecified artificial knee joint; Z79.82 Long term (current) use of aspirin; Z79.899 Other long term (current) drug therapy
CPT/HCPCS: 36415; 70450; 71020; 80053; 80061; 81001; 82550; 82553; 83735; 83880; 84100; 84439; 84443; 84481; 84484; 85025; 85610; 85730; 93005; 93306; 93880